=== PATIENT | male | born 1960 | race Hispanic/Latino ===

== ENCOUNTER 2020-01-07 07:57 | Inpatient (IN) | payer OTHER ==
[~2020-01-07] VITALS: Ht 177.8 cm; Wt 134.7 kg
[2020-01-07 08:28] LABS: BASOPHILS % 0.2 % (0.0-1.0); EOSINOPHILS # (AUTO) 0.1 (0.0-0.4); EOSINOPHILS % 0.5 % (0.0-6.0); HEMATOCRIT 40.6 % (38.2-49.6); HEMOGLOBIN 14.4 g/dL (14.0-18.0); LYMPHOCYTES # (AUTO) 0.6 (1.0-3.2); LYMPHOCYTES % 4.6 % (18.0-39.1); MEAN CORPUSCULAR HGB CONC 35.5 g/dL (31-35); MEAN CORPUSCULAR VOLUME 87.5 fL (81-99); MONOCYTES # (AUTO) 0.5 (0.2-0.8); MONOCYTES % 4.1 % (4.4-11.3); NEUTROPHILS # (AUTO) 11.7 (2.1-6.9); NEUTROPHILS % 89.6 % (38.7-80.0); PLATELET COUNT 188 x10e3/uL (140-360); RED BLOOD COUNT 4.64 x10e6/uL (4.3-5.7); RED CELL DISTRIBUTION WIDTH 13.3 % (11.7-14.4)
[2020-01-07 08:39] LABS: INR 1.07; PARTIAL THROMBOPLASTIN TIME 32.9 seconds (23.8-35.5); PROTHROMBIN TIME 14.6 seconds (11.9-14.5)
[2020-01-07 08:46] LABS: ALANINE AMINOTRANSFERASE 17 IU/L (0-55); ALBUMIN 3.7 g/dL (3.5-5.0); ALBUMIN/GLOBULIN RATIO 0.9 (0.8-2.0); ALKALINE PHOSPHATASE 69 IU/L (40-150); ANION GAP 16.2 mmol/L (8-16); BLOOD UREA NITROGEN 18 mg/dL (7-26); BUN/CREATININE RATIO 18 (6-25); CALCIUM 10.2 mg/dL (8.4-10.2); CARBON DIOXIDE 31 mmol/L (22-29); CHLORIDE 94 mmol/L (98-107); CREATININE, SERUM 0.98 mg/dL (0.72-1.25); EST GLOMERULAR FILTRATION RATE > 60 ML/MIN (60-); GLUCOSE 274 mg/dL (74-118); POTASSIUM 3.2 mmol/L (3.5-5.1); SODIUM 138 mmol/L (136-145)
--- NOTE | 2020-01-07 09:37 | Diagnostic Imaging Report ---
EXAMINATION: CHEST SINGLE (PORTABLE) INDICATION: Shortness of breath. COMPARISON: None FINDINGS: TUBES and LINES: None. LUNGS: Low lung volumes. Central vascular congestion without pulmonary edema. Mild patchy left basilar opacity. PLEURA: No pleural effusion or pneumothorax. HEART AND MEDIASTINUM: The cardiomediastinal silhouette is unremarkable. BONES AND SOFT TISSUES: No acute osseous lesion. Soft tissues are unremarkable. UPPER ABDOMEN: No free air under the diaphragm. IMPRESSION: Low lung volumes with mild patchy left basilar opacity, likely atelectasis, although infection is possible in the appropriate clinical setting. Signed by: Dr. Mar Bell MD on 01/07/2020 9:33 AM
[2020-01-07] MEDS ORDERED: ACETAMINOPHEN 325 MG TAB PO ONE (09:45)
[2020-01-07] MEDS ORDERED: AZITHROMYCIN 500MG/NS 250 ML 250 ML IV STA (11:20)
--- OUTSIDE RECORDS SUMMARY | 2020-01-07 12:10 | XMS REPORT ---
Author Author [facility] Address Unknown Phone Unavailable Care Team Providers Care Bell Valet Name Role Phone SAVANNAH HOOPER Unavailable Unavailable Problems This patient has no known problems. Allergies, Adverse Reactions, Alerts This patient has no known allergies or adverse reactions. Medications This patient has no known medications. Encounters Start Date/Time End Date/Time Encounter Type Admission Type Attending [facility] Care Department Encounter ID 2020-03-25 00:00:00 2020-03-25 00:00:00 Outpatient [facility] [id number] 2019-11-27 00:00:00 2019-11-27 00:00:00 Outpatient [facility] [id number] 2019-09-09 14:07:07 2019-09-09 14:07:07 Outpatient [facility] [id number] 2019-08-14 09:56:07 2019-08-14 09:56:07 Outpatient [facility] [id number] 2019-08-02 09:48:35 2019-08-02 09:48:35 Outpatient [facility] [id number] 2019-07-28 08:16:00 2019-07-28 08:16:00 Outpatient [facility] [id number] 2019-06-27 14:02:18 2019-06-27 14:02:18 Outpatient [facility] [id number] 2019-06-26 12:18:23 2019-06-26 12:18:23 Outpatient [facility] [id number] 2019-06-26 11:38:22 2019-06-26 11:38:22 Outpatient [facility] [id number] 2019-06-26 10:42:53 2019-06-26 10:42:53 Outpatient [facility] [id number] 2019-06-26 00:00:00 2019-06-26 00:00:00 Outpatient [facility] [id number] 2019-05-04 15:32:57 2019-05-04 15:32:57 Outpatient [facility] [id number] 2019-05-04 14:11:02 2019-05-04 14:11:02 Outpatient [facility] [id number] 2019-05-02 13:14:00 2019-05-02 13:14:00 Outpatient [facility] [id number] 2019-03-07 14:34:33 2019-03-07 14:34:33 Outpatient [facility] [id number] 2019-02-22 00:00:00 2019-02-22 00:00:00 Outpatient [facility] [id number] 2019-02-07 14:41:22 2019-02-07 14:41:22 Outpatient [facility] [id number] 2018-12-27 14:47:44 2018-12-27 14:47:44 Outpatient [facility] [id number] 2018-12-14 09:38:01 2018-12-14 09:38:01 Outpatient [facility] [id number] 2018-11-30 10:21:18 2018-11-30 10:21:18 Outpatient [facility] [id number] 2018-11-30 09:39:26 2018-11-30 09:39:26 Outpatient [facility] [id number] 2018-11-29 14:47:13 2018-11-29 14:47:13 Outpatient [facility] [id number] 2018-11-15 09:50:59 2018-11-15 09:50:59 Outpatient [facility] [id number] 2018-11-15 09:50:03 2018-11-15 09:50:03 Outpatient [facility] [id number] 2018-11-01 13:54:47 2018-11-01 13:54:47 Outpatient [facility] [id number] 2018-10-28 09:46:55 2018-10-28 09:46:55 Outpatient [facility] [id number] 2018-10-04 15:08:38 2018-10-04 15:08:38 Outpatient [facility] [id number] 2018-10-03 10:31:38 2018-10-03 10:31:38 Outpatient [facility] [id number] 2018-09-14 08:59:32 2018-09-14 08:59:32 Outpatient [facility] [id number] 2018-09-13 15:35:11 2018-09-13 15:35:11 Outpatient [facility] [id number] 2018-08-04 00:00:00 2018-08-04 00:00:00 Outpatient [facility] [id number] 2018-07-08 11:08:22 2018-07-08 11:08:22 Outpatient [facility] [id number] 2018-07-08 10:47:40 2018-07-08 10:47:40 Outpatient [facility] [id number] 2018-06-28 00:00:00 2018-06-28 00:00:00 Outpatient [facility] [id number] 2018-06-17 00:00:00 2018-06-17 00:00:00 Outpatient [facility] [id number] 2018-06-01 10:34:20 2018-06-01 10:34:20 Outpatient [facility] [id number] 2018-05-31 00:00:00 2018-05-31 00:00:00 Outpatient [facility] [id number] 2018-05-16 00:00:00 2018-05-16 00:00:00 Outpatient [facility] [id number] 2018-05-16 00:00:00 2018-05-16 00:00:00 Outpatient [facility] [id number] 2018-04-22 10:59:50 2018-04-22 10:59:50 Outpatient [facility] [id number] 2018-04-05 00:00:00 2018-04-05 00:00:00 Outpatient [facility] [id number] 2018-03-04 11:22:43 2018-03-04 11:22:43 Outpatient [facility] [id number] 2018-03-01 00:00:00 2018-03-01 00:00:00 Outpatient [facility] [id number] 2018-02-17 08:21:28 2018-02-17 08:21:28 Outpatient [facility] [id number] 2018-02-17 08:07:03 2018-02-17 08:07:03 Outpatient [facility] [id number] 2018-02-10 12:38:08 2018-02-10 12:38:08 Outpatient [facility] [id number] 2018-02-10 11:16:57 2018-02-10 11:16:57 Outpatient [facility] [id number] 2018-02-10 00:00:00 2018-02-10 00:00:00 Outpatient [facility] [id number] Results Test Description Test Time Test Comments Text Results Atomic Results Result Comments CHEST SINGLE (PORTABLE) 2020-01-07 09:31:00 [facility] [address] [facility] [place] [address] Patient Name: NALINI MORGAN MR #: [id number] : 1960 Age/Sex: 59/M Req #: [id number] Adm Physician: Ordered by: SAVANNAH HOOPER DO Report #: [id number] Location: ER Room/Bed: Procedure: [id number] DX/CHEST SINGLE (PORTABLE) Exam Date: 01/07/20 Exam Time: 0845 REPORT STATUS: Signed EXAMINATION: CHEST SINGLE (PORTABLE) INDIC ATION: Shortness of breath. COMPARISON: None FINDINGS: TUBES and LINES: None. LUNGS: Low lung volumes. Central vascular congestion without pulmonary edema. Mild patchy left basilar opacity. PLEURA: No pleural effusion or pneumothorax. HEART AND MEDIASTINUM: The cardiomediastinal silhouette is unremarkable. BONES AND SOFT TISSUES: No acute osseous lesion. Soft tissues are unremarkable. UPPER ABDOMEN: No free air under the diaphragm. IMPRESSION: Low lung volumes with mild patchy left basilar opacity, likely atelectasis, although infection is possible in the appropriate clinical setting. Signed by: Dr. Cheyanne Heller MD on 01/07/2020 9:33 AM Dictated By: CHEYANNE HELLER MD 2 Transcribed By: PATRICE on 01/07/20932 COPY TO: SAVANNAH HOOPER DO
[2020-01-07] MEDS ORDERED: ONDANSETRON HCL INJ 2MG/ML 2ML 2 MG/ML VIAL IV STA (12:26)
[2020-01-07] MEDS ORDERED: ZOLPIDEM TARTRATE 5 MG TAB PO PRN (12:45)
[2020-01-07] MEDS ORDERED: CEFTRIAXONE SOD 1 GM/NS 50 ML 50 ML IV SCH (12:45)
[2020-01-07] MEDS ORDERED: SODIUM CHLORIDE 0.9% 1000ML 1,000 ML IV ONE (12:45)
[2020-01-07] MEDS ORDERED: DEXTROSE 50% SYRINGE 50 ML IV PRN (12:45)
[2020-01-07] MEDS ORDERED: SODIUM CHLORIDE 0.9% 50ML 50 ML ONE ×2 (12:57→18:01)
[2020-01-07] MEDS ORDERED: IOPAMIDOL 370 MG/ML 200 ML INFUS..BTL INJ ONE ×2 (12:57→18:01)
[2020-01-07] MEDS ORDERED: DIATRIZOATE MEGL/DIATRIZOA SOD 30 ML BTL PO ONE (13:20)
[2020-01-07] MEDS ORDERED: METRONIDAZOLE 500MG/NS 100ML 100 ML IV SCH (14:00)
[2020-01-07] MEDS: PANTOPRAZOLE 40 MG 10ML VIAL IV SCH (14:08)
[2020-01-07] MEDS ORDERED: LACTATED RINGER'S 1,000 ML IV ONE (14:30)
[2020-01-07] MEDS ORDERED: POTASSIUM CHLORIDE 20MEQ/100ML 200 ML IV ONE (14:30)
[2020-01-07] MEDS ORDERED: PROMETHAZINE 12.5MG/ NACL 0.9% 12.5 MG/50 ML BAG IV PRN (14:45)
--- NOTE | 2020-01-07 15:52 | Consultation ---
DATE OF CONSULTATION: Pulmonary Critical Care consultation CHIEF COMPLAINT: Vomiting, acid reflux, and abdominal discomfort. HISTORY OF PRESENT ILLNESS: The patient is a 59-year-old man. He reports a history of diabetes and takes Glucophage. He also has a history of hypertension and takes hydrochlorothiazide. Over the past 4-5 days, he has felt ill. He has had distention of his abdomen. He has not been moving his bowels or passing gas well. He also reports some vomiting. He has a foul taste in his mouth. The patient seems unsure about fevers at home. He denies any cough. He is not short of breath. PAST SURGICAL HISTORY: No prior surgical history. PAST MEDICAL HISTORY: 1. Diabetes. 2. Hypertension. 3. The patient denies any history of ulcers, stomach problems, gastroesophageal reflux, or liver problems. 4. Umbilical hernia. 5. No prior history of asthma or COPD. SOCIAL HISTORY: The patient has never been a smoker. He is not a drinker. He only occasionally uses alcohol. He works in maintenance at a local school. He lives in [place]. ALLERGIES: NO KNOWN DRUG ALLERGIES. FAMILY HISTORY: Family history is noncontributory. REVIEW OF SYSTEMS: The patient is afebrile. He does not complain of any headache. He has no neck pain. He has no chest discomfort. He has no cough. He has no abdominal pain, although he does have some distention. He has had gastroesophageal reflux and bad taste in his mouth. He reports difficulty moving his bowels and difficulty moving gas. He also complains of some weakness and apathy. He does not feel like walking. PHYSICAL EXAMINATION: VITAL SIGNS: The patient is afebrile. The blood pressure is 148/90, and saturation is 95%. Pulse is 105. Temperature is 99.2. HEENT: No facial swelling or erythema. CARDIAC: Regular rate and rhythm with normal S1, S2. LUNGS: Auscultation of lungs shows decreased breath sounds at the bases. There is no wheezing. ABDOMEN: Mildly distended, but soft. There is no rebound or guarding. There is an umbilical hernia. EXTREMITIES: No leg edema or calf tenderness. There is no cyanosis clubbing. SKIN: No rashes. NEUROLOGICAL: No focal abnormalities. He moves his legs well. LABORATORY DATA: BUN to creatinine ratio is normal. The other electrolytes are within normal limits. The potassium is 3.2. White blood cell count is 13 and hemoglobin is 14.4. The platelet count is 188. RADIOGRAPHIC DATA: Chest x-ray shows low lung volumes with patchy atelectasis. IMPRESSION: 1. Abdominal distention and vomiting. 2. Gastroesophageal reflux. 3. Diabetes. 4. Hypertension. 5. Umbilical hernia. PLAN: 1. Judicious use of IV fluids. 2. Protonix and Zofran. 3. Either ultrasound or CT scan of abdomen. 4. Consider GI evaluation. 5. Await coronavirus testing. Blayne Osorio MD [facility] /[id number]
[2020-01-07 16:05] VITALS: BP 116/87
--- NOTE | 2020-01-07 16:26 | Diagnostic Imaging Report ---
Exam: KUB -3 views Clinical History: Vomiting. Comparison: None. Findings: Examination somewhat limited by body habitus and technique. Dilated small bowel loops, measuring up to 5.8 cm with a paucity of air within the colon. No evidence of free intraperitoneal air. Likely air-filled colon loop below the left hemidiaphragm. No evidence of abnormal calcification. No acute bony abnormality. Impression: Findings of high-grade small bowel obstruction. Signed by: Dr. Mar Bell MD on 01/07/2020 4:23 PM
[2020-01-07] MEDS ORDERED: INSULIN REGULAR, HUMAN 100 UNIT/1 ML 3ML VIAL SQ SCH (16:30)
--- NOTE | 2020-01-07 16:43 | Diagnostic Imaging Report ---
EXAM: CT Abdomen and Pelvis WITH contrast INDICATION: Vomiting. COMPARISON: KUB 01/07/2020. TECHNIQUE: Abdomen and pelvis were scanned utilizing a multidetector helical scanner from the lung base to the pubic symphysis after administration of IV contrast. Coronal and sagittal reformations were obtained. Routine protocol was performed. Scan was performed when during portal venous phase. IV CONTRAST: 100 cc of Isovue-370. ORAL CONTRAST: None. COMPLICATIONS: None RADIATION DOSE: Total DLP: 804.7 mGy*cm Estimated effective dose: (DLP x 0.015 x size factor) mSv CTDIvol has been reviewed. It is below the limits set by the Radiation Protocol Committee (RPC). FINDINGS: LINES and TUBES: None. LOWER THORAX: Dependent subsegmental atelectasis. Multivessel extensive coronary atherosclerosis. HEPATOBILIARY: No evidence of focal lesion. No biliary ductal dilation. GALLBLADDER: No radio-opaque stones or sludge. No wall thickening. SPLEEN: No splenomegaly. PANCREAS: No focal masses or ductal dilatation. Pancreatic fatty atrophy. ADRENALS: No adrenal nodules KIDNEYS/URETERS: Nonspecific mild bilateral perinephric stranding. No evidence of hydronephrosis, solid mass, or stone. GI TRACT: In the right lower quadrant there is a tubular structure likely appendix which appears dilated, measuring up to 1.1 cm with surrounding inflammatory changes (axial series 2, image 72; sagittal image 51). Distended stomach with air-fluid level. Distended small bowel loops, measuring up to 5.5 cm. Transition point in the ileum in the right mid abdomen as seen on series 2, image 49. Decompressed distal ileal loops. Air and some stool seen within partially decompressed colonic loops. Tiny hiatal hernia. PELVIC ORGANS/BLADDER: Bladder is partially decompressed and appears mildly circumferentially thick-walled. LYMPH NODES: No lymphadenopathy. VESSELS: There is mild atherosclerotic disease in the aorta and major arterial branches. PERITONEUM / RETROPERITONEUM: No free air or fluid. BONES AND SOFT TISSUES: No acute osseous abnormality. Fat-containing bilateral inguinal hernias. Fat-containing periumbilical hernia with a neck measuring up to 3.0 cm. No evidence of incarceration. CONCLUSION: Findings of acute appendicitis. No evidence of gross perforation or drainable fluid collection. Findings of high-grade partial small bowel obstruction with transition point in the right mid abdomen in the ileum. Alternatively this may be secondary to ileus in the setting of appendicitis. No evidence of pneumatosis or free air. Mild wall thickening within the bladder may reflect decompression versus cystitis. Mild nonspecific bilateral perinephric stranding which may reflect infectious or inflammatory etiology. Recommend clinical correlation with urinalysis. Multivessel extensive coronary atherosclerosis. The above findings were discussed with Dr. Beebe on 01/07/2020 at 4:39 PM, who responded indicating that the communication was understood. Signed by: Dr. Mar Bell MD on 01/07/2020 4:40 PM
[2020-01-07] MEDS: INSULIN LISPRO 100 UNIT/1 ML 3ML VIAL SQ SCH ×2 (16:45→21:00)
[2020-01-07] MEDS ORDERED: CEFTRIAXONE SOD 1 GM/NS 50 ML 50 ML IV ONE (17:00)
[2020-01-07] MEDS ORDERED: ENOXAPARIN SOD INJ 40 MG/0.4 ML SYR SC SCH (17:00)
[2020-01-07] MEDS: PIPER-TAZ 3.375 GM 50 ML IV SCH (18:09)
[2020-01-07 18:27] LABS: CLARITY,URINE SL CLOUDY (CLEAR); COLOR,URINE YELLOW (YELLOW); LEUKOCYTE ESTERASE ,URINE NEGATIVE (NEGATIVE); NITRITE,URINE NEGATIVE (NEGATIVE); PROTEIN,URINE DIPSTICK 1+ (NEGATIVE)
[2020-01-07 18:28] LABS: BILIRUBIN,URINE NEGATIVE (NEGATIVE); KETONES,URINE NEGATIVE (NEGATIVE); URINE UROBILINOGEN 0.2 mg/dL (0.2 - 1)
[2020-01-07] MEDS: LACTATED RINGER'S 1,000 ML IV SCH (18:30)
[2020-01-07] MEDS ORDERED: MORPHINE SULFATE INJ 4 MG/ML INJ 1ML IV PRN (18:30)
[2020-01-07 18:32] LABS: BACTERIA,URINE RARE /HPF; EPITHELIAL CELLS,URINE FEW /LPF; RBC,URINE 0-5 /HPF (0-5); WBC,URINE (MAN) 0-5 /HPF (0-5)
[2020-01-07 20:00] VITALS: BP 142/90
--- NOTE | 2020-01-07 20:02 | History and Physical ---
CHIEF COMPLAINT: Vomiting. HISTORY OF PRESENT ILLNESS: This is a 59-year-old diabetic, morbidly obese, who came in with abdominal pain for the last two days with some subjective fever. The patient also vomited at home and it sounded like the patient was having trouble with constipation and took some laxative [id number] and finally had a bowel movement. The patient stated his pain is on the right side and also while he is walking. Denies chest pain, little bit of dyspnea on exertion, no myalgia and not really any cough. PAST MEDICAL AND SURGICAL HISTORY: Diabetes. MEDICATIONS: Please see medication reconciliation form. ALLERGIES: NONE. SOCIAL HISTORY: Social drinking. FAMILY HISTORY: No diabetes. REVIEW OF SYSTEMS: A 10-point review of system obtained, nothing else is significant other than what is stated in HPI. PHYSICAL EXAMINATION: VITAL SIGNS: Temperature 99.2, initial pulse was 115 now is down to 96, respiratory rate 17 to 25, blood pressure anywhere from 140/86 to 192/115. GENERAL: No acute distress. SKIN: No rash. HEENT: Anicteric. Oropharynx is clear. LUNGS: Clear. HEART: Regular rate and rhythm. Normal S1, S2. ABDOMEN: Soft. Mild left-sided tenderness to deep palpation. No rebound tenderness. MUSCULOSKELETAL: Painless range of motion. NEUROLOGIC: Alert and oriented x3. Cranial nerves 2 through 12 intact. PSYCHIATRIC: No hallucinations. LABORATORY DATA: Laboratory abernathy; white count 13, hemoglobin 14, platelet count 188,000. INR 1.07, PTT 32.9, potassium 3.2, creatinine 0.98, sugar 294. LFTs are normal. Chest x-ray shows possible atelectasis on the left side. ASSESSMENT AND PLAN: 1. Abdominal pain and vomiting with sepsis present on admission likely due to this reason. We will get a stat KUB to evaluate. We will also check a lipase. The patient is also scheduled for a CT scan. Empirically, he will be cover with IV Rocephin and IV Flagyl along with IV fluid. 2. Hypokalemia, we will replete. We will also check magnesium. 3. Morbid obesity. 4. Diabetes. We will put him on sliding scale for now. 5. GI and DVT prophylaxis. Protonix IV and Lovenox. Yiching MD LUCILLE Singh/[place] [facility] /[id number]
[2020-01-08] VITALS (8 sets, daily range): BP systolic 121–161; BP diastolic 67–83
[2020-01-08] MEDS: PIPER-TAZ 3.375 GM 50 ML IV SCH ×4 (00:30→17:51)
[2020-01-08] MEDS: LACTATED RINGER'S 1,000 ML IV SCH ×3 (03:23→18:30)
[2020-01-08] MEDS ORDERED: METFORMIN HCL500 MG PO (05:34)
[2020-01-08] MEDS ORDERED: HYDROCHLOROTHIA25 MG (05:34)
[2020-01-08 06:25] LABS: BASOPHILS % 0.4 % (0.0-1.0); EOSINOPHILS # (AUTO) 0.1 (0.0-0.4); EOSINOPHILS % 0.8 % (0.0-6.0); HEMATOCRIT 45.4 % (38.2-49.6); HEMOGLOBIN 14.5 g/dL (14.0-18.0); LYMPHOCYTES # (AUTO) 1.2 (1.0-3.2); LYMPHOCYTES % 12.5 % (18.0-39.1); MEAN CORPUSCULAR HEMOGLOBIN 30.8 pg (28-32); MEAN CORPUSCULAR HGB CONC 31.9 g/dL (31-35); MEAN CORPUSCULAR VOLUME 96.4 fL (81-99); MONOCYTES # (AUTO) 0.6 (0.2-0.8); MONOCYTES % 6.4 % (4.4-11.3); NEUTROPHILS # (AUTO) 7.5 (2.1-6.9); NEUTROPHILS % 79.2 % (38.7-80.0); PLATELET COUNT 133 x10e3/uL (140-360); RED BLOOD COUNT 4.71 x10e6/uL (4.3-5.7); RED CELL DISTRIBUTION WIDTH 13.4 % (11.7-14.4)
[2020-01-08 06:37] LABS: ALANINE AMINOTRANSFERASE 13 IU/L (0-55); ALBUMIN 3.4 g/dL (3.5-5.0); ALBUMIN/GLOBULIN RATIO 0.9 (0.8-2.0); ALKALINE PHOSPHATASE 64 IU/L (40-150); ANION GAP 14.7 mmol/L (8-16); BLOOD UREA NITROGEN 24 mg/dL (7-26); BUN/CREATININE RATIO 27 (6-25); CALCIUM 9.5 mg/dL (8.4-10.2); CARBON DIOXIDE 28 mmol/L (22-29); CHLORIDE 100 mmol/L (98-107); CREATININE, SERUM 0.88 mg/dL (0.72-1.25); EST GLOMERULAR FILTRATION RATE > 60 ML/MIN (60-); GLUCOSE 148 mg/dL (74-118); POTASSIUM 3.7 mmol/L (3.5-5.1); SODIUM 139 mmol/L (136-145)
[2020-01-08] MEDS: INSULIN LISPRO 100 UNIT/1 ML 3ML VIAL SQ SCH ×4 (07:30→22:57)
[2020-01-08] MEDS: PANTOPRAZOLE 40 MG 10ML VIAL IV SCH (10:22)
[2020-01-08] MEDS ORDERED: CEFTRIAXONE SOD 1 GM/NS 50 ML 50 ML IV SCH (12:45)
[2020-01-08] MEDS ORDERED: BUPIVACAINE 0.5%/EPI 30 ML SDV INJ ONE (14:09)
[2020-01-08] MEDS ORDERED: BUPIVACAINE 0.25% 30ML SDV INJ ONE (14:09)
[2020-01-08] MEDS ORDERED: MIDAZOLAM HCL 2 MG/2 ML VIAL ONE (14:14)
[2020-01-08] MEDS ORDERED: FENTANYL CITRATE/PF 100MCG/2 ML INJ ONE (14:14)
[2020-01-08] MEDS ORDERED: LIDOCAINE HCL 2% LOCAL INJ 5 ML SDV VIAL INJ ONE (14:23)
[2020-01-08] MEDS ORDERED: ONDANSETRON HCL INJ 2MG/ML 2ML 2 MG/ML VIAL ONE (14:23)
[2020-01-08] MEDS ORDERED: SEVOFLURANE INHAL SOLN 250 ML PEN BTL ONE (14:23)
[2020-01-08] MEDS ORDERED: ACETAMINOPHEN 1000 MG/100 ML IV ONE (14:23)
[2020-01-08] MEDS ORDERED: ROCURONIUM BROMIDE 10 MG/ML 5ML VIAL IV ONE (14:23)
[2020-01-08] MEDS ORDERED: NEOSTIGMINE 1 MG/ML 10ML VIAL ONE (14:23)
[2020-01-08] MEDS ORDERED: PROPOFOL IV EMULSION 10 MG/ML 20 ML VIAL ONE (14:23)
[2020-01-08] MEDS ORDERED: GLYCOPYRROLATE INJ 0.2 MG/ML VIAL ONE (14:23)
[2020-01-08] MEDS ORDERED: HYDROMORPHONE 1MG/1ML INJ IV PRN (15:30)
[2020-01-08] MEDS ORDERED: SUGAMMADEX SODIUM 200 MG/2 ML VIAL IV ONE (15:35)
[2020-01-08] MEDS ORDERED: ACETAMINOPHEN 1000 MG/100 ML IV PRN (16:00)
--- NOTE | 2020-01-08 16:56 | Operative Report ---
DATE OF PROCEDURE: 01/08/2020 SURGEON: Zackery Fitch MD PREOPERATIVE DIAGNOSIS: Acute appendicitis. POSTOPERATIVE DIAGNOSIS: Acute appendicitis. OPERATION PERFORMED: Laparoscopic appendectomy. MEDICAL ADMINISTRATIVE: LAURA Benitez. ANESTHESIA: General. COMPLICATIONS: None. ESTIMATED BLOOD LOSS: Minimal. DESCRIPTION OF PROCEDURE: With the patient lying bed in the supine position under good general endotracheal anesthesia, the abdomen was prepped with Betadine solution and draped in the usual manner. A Veress needle was introduced into the right upper quadrant and pneumoperitoneum was established without any difficulty. A 5 mm trocar was placed in the right subcostal region and a 5 mm videolaparoscope was placed into the intraabdominal cavity. Videolaparoscopy at this point revealed a large known umbilical hernia to be impacted with omentum. There was no bowel contained within the hernia sac. Two more 5 mm trocars were then placed in the left abdomen and the 12 mm trocar was placed in the right mid abdomen. Laparoscopy at this point revealed an inflammatory mass in the right gutter with the terminal ileum being stuck to it and covering it up. There was no fluid in the rest of the abdominal cavity. The terminal ileum was then mobilized off the lateral gutter and acutely-inflamed appendix was encountered. The base of the appendix was then dissected as it joined the cecum and was then divided with an application of the Endo-DAISY stapler. The mesentery of the appendix was then divided with another application of the Endo-DAISY vascular stapler. The appendix was then placed in a pouch and removed through the 12 mm trocar. Videolaparoscopy was then again carried out. Hemostasis was ascertained. The abdomen was then irrigated and all the excess fluid was aspirated. Perfect hemostasis was ascertained. The pneumoperitoneum was evacuated and all the trocars were removed under direct vision. The midline fascia at the umbilicus was then closed with a dmnlze-pg-ikswj of 0 Vicryl. All layers were infiltrated on the way out with solution of 0.25% Marcaine. The subcutaneous tissue was approximated with 3-0 Vicryl and the skin was closed with subcuticular 5-0 Vicryl. Benzoin, Steri-Strips, and Band-Aids were applied. The sponge, lap, and needle count was correct. The patient tolerated the procedure well and returned to the recovery room in stable condition. MD PUJA Hauser/[place] [facility] /[id number]
--- NOTE | 2020-01-08 19:12 | Consultation ---
DATE OF CONSULTATION: HISTORY: Mr. Saeed is a 59-year-old gentleman, who has history of diabetes and hypertension, on Glucophage and hydrochlorothiazide, comes in with abdominal pain, not feeling well. The patient was seen on January 06. For summary details, see my consultation. PAST MEDICAL HISTORY: Significant for obesity. PAST SURGICAL HISTORY: As above. ALLERGIES: NKA. SOCIAL HISTORY: He does not smoke, drug abuse, alcohol abuse. FAMILY HISTORY: Unremarkable. IMPRESSION: Abdominal distention, diabetes mellitus, hypertension, concerned about acute abdomen. Recommend stat CAT scan of the pelvis. Surgical evaluation. Put the patient on Zosyn, diabetic control, IV fluids. Discussed with the ER physician. We will follow. MD GENE Gonzalez/[place] [facility] /[id number]
--- NOTE | 2020-01-08 19:17 | Progress Note ---
DATE: SUBJECTIVE: Mr. Seaed was seen today. He is status post surgery. The patient underwent laparoscopic appendectomy. Events noted. The patient was diagnosed with appendicitis, underwent surgery. He is currently post surgery. LABORATORY DATA: Reviewed. White count 9.5, hemoglobin 14.5. His sodium 138, potassium 3.7, creatinine 0.88. PHYSICAL EXAMINATION: GENERAL: Currently, alert and oriented. Does not seem to be in acute distress. VITAL SIGNS: Stable, currently afebrile. HEENT: He is not icteric. NECK: Supple. CHEST: Clear. COR: S1, S2. ABDOMEN: Soft. IMPRESSION: Appendicitis status post appendectomy. Continue Zosyn. Recheck CBC. Recheck Chem panel. Continue supportive care. We will follow. MD GENE Gonzalez/[place] [facility] /[id number]
[2020-01-09] VITALS (10 sets, daily range): BP systolic 132–152; BP diastolic 64–83
[2020-01-09] MEDS: PIPER-TAZ 3.375 GM 50 ML IV SCH ×5 (00:47→20:59)
[2020-01-09] MEDS: LACTATED RINGER'S 1,000 ML IV SCH ×2 (02:30→05:12)
[2020-01-09 05:54] LABS: BASOPHILS % 0.2 % (0.0-1.0); EOSINOPHILS % 0.5 % (0.0-6.0); HEMATOCRIT 37.2 % (38.2-49.6); HEMOGLOBIN 11.4 g/dL (14.0-18.0); LYMPHOCYTES # (AUTO) 0.9 (1.0-3.2); MEAN CORPUSCULAR HEMOGLOBIN 31.2 pg (28-32); MEAN CORPUSCULAR HGB CONC 30.6 g/dL (31-35); MEAN CORPUSCULAR VOLUME 101.9 fL (81-99); MONOCYTES # (AUTO) 0.8 (0.2-0.8); MONOCYTES % 12.4 % (4.4-11.3); NEUTROPHILS # (AUTO) 4.8 (2.1-6.9); NEUTROPHILS % 72.4 % (38.7-80.0); PLATELET COUNT 157 x10e3/uL (140-360); RED BLOOD COUNT 3.65 x10e6/uL (4.3-5.7); RED CELL DISTRIBUTION WIDTH 13.4 % (11.7-14.4)
[2020-01-09 06:07] LABS: ANION GAP 10.6 mmol/L (8-16); BLOOD UREA NITROGEN 16 mg/dL (7-26); BUN/CREATININE RATIO 21 (6-25); CALCIUM 8.6 mg/dL (8.4-10.2); CARBON DIOXIDE 32 mmol/L (22-29); CHLORIDE 101 mmol/L (98-107); CREATININE, SERUM 0.77 mg/dL (0.72-1.25); EST GLOMERULAR FILTRATION RATE > 60 ML/MIN (60-); GLUCOSE 181 mg/dL (74-118); POTASSIUM 3.6 mmol/L (3.5-5.1); SODIUM 140 mmol/L (136-145)
--- NOTE | 2020-01-09 06:49 | Consultation ---
DATE OF CONSULTATION: 01/07/2020 REASON FOR CONSULTATION: Abdominal pain, sepsis. HISTORY OF PRESENT ILLNESS: This patient who is a 59-year-old male, who has history of abdominal pain, history of obesity, comes in with 3 days history of abdominal pain, nausea, vomiting. He is vomiting a bile type of material. The patient is seen in the emergency room. PAST MEDICAL HISTORY: Obesity, hypertension. PAST SURGICAL HISTORY: Denies. ALLERGIES: NKA. SOCIAL HISTORY: No smoking, drug abuse or alcohol abuse. LABORATORY DATA: White count 13, hemoglobin 14. Sodium 138, potassium 3.2 with creatinine 0.98. REVIEW OF SYSTEMS: Otherwise as above. PHYSICAL EXAMINATION: GENERAL: Currently alert, oriented, does not seem acute distress, afebrile. HEENT: Normocephalic, not icteric. NECK: Supple. CHEST: Clear bilateral. HEART: S1, S2. No S3, S4, or murmur. ABDOMEN: Soft. Bowel sounds present. No tenderness. EXTREMITIES: No edema. IMPRESSION: Nausea, vomiting, abdominal pain, concerned about intraabdominal infection. The patient is currently on Rocephin and Flagyl. Obtain stat CT of abdomen and pelvis. May need surgical evaluation. NG tube to low intermittent suction. Since he came in season of COVID-19, we will put him on droplet isolation for the time being. Till we get PCI which was ordered, but suspicion is very low. MD GENE Gonzalez/[place] [facility] /[id number]
--- NOTE | 2020-01-09 06:58 | Progress Note ---
DATE: 01/08/2020 SUBJECTIVE: This is a pleasant, morbidly obese, gentleman, who is 59 years old. The patient came to the hospital complaining of vomiting and abdominal pain with subjective fever, however, no fever documented since admission. He has very small amount of bowel movements. He has no cough and no sweats. MEDICATIONS: Medication list reviewed. As far as Infectious Disease point of view, the patient is on Zosyn. ALLERGIES: NO KNOWN ALLERGIES. REVIEW OF SYSTEMS: Complain of a right lower quadrant abdominal pain. No vomiting. No chills. No cough. No sweats. No fever. Very small amount of bowel movement and he feels distended and bloated. PHYSICAL EXAMINATION: VITAL SIGNS: Temperature is 99.9 at the max since admission, pulse is 84, respirations 18, and blood pressure 143/78. GENERAL: Alert and oriented, responds appropriately. CV: S1 and S2. CHEST: Equal expansion. Decreased breath sounds. No acute distress. ABDOMEN: Very tender on the right lower quadrant. HEENT: Moist. No pallor. No JVD. EXTREMITIES: No significant edema. Moves all. LABORATORY DATA: White blood cells 9.51, improved from 13.04; hemoglobin 14.5; and platelet 133, dropped from 188. Creatinine is 0.88, sodium 139, potassium 3.7. COVID testing is pending and influenza A and B antigen are negative. MICROBIOLOGY: Blood culture is negative. Recheck blood culture in progress and they are all dated same. 01/07/2020. RADIOLOGY STUDIES: Chest x-ray showed low lung volumes and mild patchy left basilar opacity, likely atelectasis, although infection is possible in appropriate clinical settings. CT of abdomen and pelvis showed acute appendicitis. No evidence of gross perforation or drainable fluid collection, also suggested findings of high-grade partial small bowel obstruction with transition point in the right mid abdomen in the ileum. Alternatively, this may be secondary to ileus in the setting of appendicitis. No evidence of pneumatosis or free air. Bladder may be decompressed versus cystitis. Nonspecific bilateral perinephric stranding, which may reflect infectious or inflammatory etiology. Followup KUB showed high-grade small bowel obstruction. ASSESSMENT AND PLAN: Concern of acute appendicitis. Also on radiology studies in addition to physical exam, tender in the right lower quadrant, also possible small bowel obstruction on CAT scan and KUB, this patient needs a surgery as soon as possible. The chances of COVID-19 is slim to none based on the patient's presentation and available radiology and labs and vital signs. The patient is currently not showing signs and symptoms of cough, shortness of breath, sweats, or any other discomfort except his right lower quadrant abdominal tenderness. I spoke with surgery team, Dr. Zackery Fitch. Also discussed with Dr. Bolton, agree with surgery. We will continue antibiotics at this point. Further management of this patient is based on daily findings on laboratory and physical examination, also based on findings intraoperatively. Dictated by Dilip Nuñez) JANN Briseno Dina Bolton MD /[facility] /[id number]
[2020-01-09] MEDS: HYDROCHLOROTHIAZIDE 25 MG TAB PO SCH (08:08)
[2020-01-09] MEDS: PANTOPRAZOLE 40 MG 10ML VIAL IV SCH (08:09)
[2020-01-09] MEDS: HYDROCODONE/APAP 7.5MG-325MG 1 EA TAB PO PRN ×2 (09:25→14:56)
[2020-01-09] MEDS: INSULIN LISPRO 100 UNIT/1 ML 3ML VIAL SQ SCH ×4 (09:29→21:00)
--- NOTE | 2020-01-09 09:34 | Progress Note ---
DATE: SUBJECTIVE: This case was discussed with Dr. Bolton and also please refer to the chart for more information. The patient is seen and evaluated with the nurse in a room, abdominal pain has improved, no nausea, no vomiting, no fever, no chills, no chest pain, no shortness of breath, the patient is flatulent, however, has no bowel movement yet. The patient refuses to get out of the bed and ambulate per my discussion with the nurse and not eating much. The patient is currently on liquid diet. OBJECTIVE: VITAL SIGNS: Temperature is 98.9 with a T-max over 99.8 this morning about four o'clock, pulse is 84, respirations 16, and blood pressure is 146/76. GENERAL: Alert and oriented, comfortable in bed, in no acute distress. CV: S1, S2. CHEST: Equal expansion, clear to auscultation, no acute distress. ABDOMEN: Soft, not as tender as it was yesterday with positive bowel sounds very hypoactive. The patient is morbidly obese. HEENT: Moist. No pallor. No JVD. EXTREMITIES: Moves all, no acute finding. MEDICATIONS: Medication list reviewed. As far as Infectious Disease point of view, patient is on Zosyn. ALLERGIES: NO KNOWN ALLERGIES. LABORATORY STUDIES: White blood cell 6.62, improved from 13.04 originally. When the patient came in, platelet is 157, improved from 133, hemoglobin is 11.4. Sodium 140, potassium 3.6, creatinine 0.77. Serology, COVID-19 pending. Influenza A and B antigen negative. Microbiology; blood culture negative 24 hours. RADIOLOGY STUDIES: There is no new radiology studies available. ASSESSMENT AND PLAN: 1. Acute appendicitis. 2. Nausea, vomiting, resolved. 3. Abdominal pain secondary to #1. 4. The patient is status post laparoscopic appendectomy. Continue with Zosyn at this point. In course, patient to get out of bed and ambulate and gradually increased oral intake. This was discussed with Dr. Bolton in details. Please refer to the chart for further information. Currently comfortable in bed in no acute distress. Dictated by Dilip Briseno PA-C (Al) Dina Bolton MD /[facility] /[id number]
[2020-01-09] MEDS: LOSARTAN POTASSIUM 25 MG TAB PO SCH (13:57)
[2020-01-10 04:00] VITALS: BP 142/78
[2020-01-10] MEDS: PIPER-TAZ 3.375 GM 50 ML IV SCH (06:28)
[2020-01-10] MEDS: LACTATED RINGER'S 1,000 ML IV SCH ×2 (06:28→09:31)
[2020-01-10] MEDS: INSULIN LISPRO 100 UNIT/1 ML 3ML VIAL SQ SCH ×2 (07:30→12:17)
[2020-01-10 07:36] VITALS: BP 146/69
[2020-01-10 08:42] VITALS: BP 146/69
[2020-01-10] MEDS: HYDROCODONE/APAP 7.5MG-325MG 1 EA TAB PO PRN (09:31)
[2020-01-10] MEDS: HYDROCHLOROTHIAZIDE 25 MG TAB PO SCH (09:32)
[2020-01-10] MEDS: LOSARTAN POTASSIUM 25 MG TAB PO SCH (09:32)
--- NOTE | 2020-01-10 09:43 | Progress Note ---
DATE: Infectious Disease SUBJECTIVE: Mr. Saeed is a pleasant 59-year-old gentleman, who was admitted to the hospital complaining of abdominal pain mostly right lower quadrant, very tender to touch, found to have acute appendicitis and now the patient is status post laparoscopic appendectomy. REVIEW OF SYSTEMS: No nausea, vomiting, fever, chills, chest pain, shortness of breath, headache, dysuria. ALLERGIES: NO KNOWN ALLERGIES. OBJECTIVE: VITAL SIGNS: Temperature is 99.0, pulse is 87, respiration 20, blood pressure 146/69. GENERAL: Alert and pleasant, in no acute distress. CV: S1, S2. CHEST: Equal expansion, clear to auscultation. No acute distress. ABDOMEN: Soft and nontender. No distention. HEENT: Moist. No pallor. No JVD. EXTREMITIES: Moves all. No significant edema. MEDICATIONS: Medication list reviewed. As far as Infectious Disease point of view, the patient is on Zosyn. LABORATORY STUDIES: White blood cells 6.62, improved from 13.04 on admission, hemoglobin is 11.4, platelet is 157, improved from 133. No new BMP available. Serology: COVID-19 and influenza A and B antigen negative. MICROBIOLOGY: Blood cultures negative x4. No other microbiology studies available. There is no wound culture in the computer available. IMAGING: No new imaging available. ASSESSMENT AND PLAN: A 59-year-old gentleman with acute appendicitis, status post laparoscopic appendectomy. Abdomen is not as tender at all. Has bowel sounds in comfortable. Nausea, vomiting, resolved. Abdominal pain, significant improvement. Obesity/debility-continue PT/OT. Pain control with [place]. Further management of this patient is based on daily findings on laboratory and physical examination, please refer to the chart for more information. There is a postop day #2 on appendectomy. Discharge planning noted. Discussed with Dr. Bolton. Please refer to the chart. Dictated by Dilip Briseno PA-C (Al) Dina Bolton MD /[facility] /[id number]
--- NOTE | 2020-01-10 11:44 | Discharge Summary ---
FINAL DIAGNOSIS: Acute appendicitis, status post laparoscopic appendectomy. SECONDARY DIAGNOSES: 1. Coronavirus disease 2019 negative. 2. Diabetes. 3. Morbid obesity. 4. Hypertension. CONSULTANTS: 1. Dr. Zackery Fitch, Surgery. 2. Dr. Bolton, Infectious Disease. 3. Dr. Blayne Osorio, Pulmonary. PROCEDURES/STUDIES PERFORMED: 1. Laparoscopic appendectomy. 2. CT of the abdomen and pelvis. HISTORY: Per [facility] HOSPITAL COURSE: The patient initially was admitted as a rule out COVID, this turned out to be negative. Subsequently, CT was done, which revealed acute appendicitis. Today is postop day #2 for laparoscopic appendectomy. The patient did well. He received Zosyn while here. The patient's diet has been advanced and tolerated without any problem. The patient will go home on Levaquin and Flagyl and will follow up with the surgeon in 2 weeks. The patient will also be given Tylenol No.3 as needed for pain control. CONDITION ON DISCHARGE: Improved. DISCHARGE MEDICATIONS: Please see medication reconciliation form. MD LUCILLE Yadav/[facility] /[id number]
[2020-01-10] MEDS ORDERED: LEVAQUIN500 MG PO (14:14)
[2020-01-10] MEDS ORDERED: FLAGYL250 MG PO (14:15)
[2020-01-10] MEDS ORDERED: TYLENOL WITH C1 EACH PO (14:15)
[2020-01-10] MEDS ORDERED: LOSARTAN POTASS25 MG PO (14:15)
== END 2020-01-10 14:51 | disposition home or self-care (01) | DRG 854 ==
LOC: ER 08:01 → ERHOLD 11:20 → MED/SURG3 15:28 → MED/SURG 01-08 16:16
PROVIDERS: ADMIT Internal Medicine; ATTEND Internal Medicine
PROC: 0DTJ4ZZ Resection of Appendix, Percutaneous Endoscopic Approach (ICD-10-PCS; principal; 2020-01-08 13:30)
DX: A41.9 Sepsis, unspecified organism (principal); K35.80 Unspecified acute appendicitis; Z68.41 Body mass index [BMI] 40.0-44.9, adult; E11.9 Type 2 diabetes mellitus without complications; I10 Essential (primary) hypertension; E66.01 Morbid (severe) obesity due to excess calories; K44.9 Diaphragmatic hernia without obstruction or gangrene; E87.6 Hypokalemia
CPT/HCPCS: 36415; 71045; 74018; 74177; 80048; 80053; 81001; 82948; 83605; 83690; 83735; 85025; 85610; 85730; 87040; 87400; 87635; 88304; 93005; 96360; 99284; C1766; J0456; J0696; J1170; J1650; J2001; J2250; J2270; J2405; J2543; J2710; J3010; J3480; J7030; J7121; Q9967

== ENCOUNTER 2021-03-02 12:18 | Inpatient (IN) | payer SELFPAY ==
[~2021-03-02] VITALS: Ht 175.3 cm; Wt 135.6 kg
[~2021-03-02 12:18] MED LIST: FLAGYL250 MG PO; HYDROCHLOROTHIA25 MG; LEVAQUIN500 MG PO; LOSARTAN POTASS25 MG PO; METFORMIN HCL500 MG PO; TYLENOL WITH C1 EACH PO
[2021-03-02 13:38] LABS: BASOPHILS % 0.3 % (0.0-1.0); EOSINOPHILS # (AUTO) 0.1 (0.0-0.4); EOSINOPHILS % 1.8 % (0.0-6.0); HEMATOCRIT 34.6 % (38.2-49.6); LYMPHOCYTES # (AUTO) 1.4 (1.0-3.2); LYMPHOCYTES % 23.7 % (18.0-39.1); MEAN CORPUSCULAR HGB CONC 34.7 g/dL (31-35); MEAN CORPUSCULAR VOLUME 89.4 fL (81-99); MONOCYTES # (AUTO) 0.6 (0.2-0.8); MONOCYTES % 9.2 % (4.4-11.3); NEUTROPHILS # (AUTO) 3.9 (2.1-6.9); NEUTROPHILS % 64.8 % (38.7-80.0); PLATELET COUNT 173 x10e3/uL (140-360); RED BLOOD COUNT 3.87 x10e6/uL (4.3-5.7)
[2021-03-02 13:53] LABS: ALANINE AMINOTRANSFERASE 15 IU/L (0-55); ALBUMIN 4.2 g/dL (3.5-5.0); ALBUMIN/GLOBULIN RATIO 1.4 (0.8-2.0); ALKALINE PHOSPHATASE 77 IU/L (40-150); ANION GAP 17.9 mmol/L (8-16); BLOOD UREA NITROGEN 10 mg/dL (7-26); BUN/CREATININE RATIO 12 (6-25); CARBON DIOXIDE 23 mmol/L (22-29); CHLORIDE 101 mmol/L (98-107); CREATINE KINASE 120 IU/L (30-200); CREATININE, SERUM 0.83 mg/dL (0.72-1.25); EST GLOMERULAR FILTRATION RATE > 60 ML/MIN (60-); GLUCOSE 207 mg/dL (74-118); POTASSIUM 3.9 mmol/L (3.5-5.1); SODIUM 138 mmol/L (136-145)
[2021-03-02] MEDS ORDERED: KETOROLAC TROMETHAMINE 30 MG/ML VIAL IV STA (15:05)
[2021-03-02] MEDS ORDERED: ASPIRIN 81 MG CHEW TAB PO ONE (15:30)
[2021-03-02] MEDS ORDERED: ONDANSETRON HCL INJ 2MG/ML 2ML 2 MG/ML VIAL IV PRN (16:15)
[2021-03-02 17:37] VITALS: BP 144/70
[2021-03-02 18:03] VITALS: BP 144/70
[2021-03-02 18:09] VITALS: BP 144/70
[2021-03-02 19:40] VITALS: BP 127/62
[2021-03-02 20:00] VITALS: BP 127/62
[2021-03-02 22:35] LABS: CREATINE KINASE 101 IU/L (30-200)
[2021-03-03] VITALS (7 sets, daily range): BP systolic 119–146; BP diastolic 56–74
[2021-03-03 05:51] LABS: BASOPHILS % 0.3 % (0.0-1.0); EOSINOPHILS # (AUTO) 0.2 (0.0-0.4); EOSINOPHILS % 2.3 % (0.0-6.0); HEMATOCRIT 34.7 % (38.2-49.6); HEMOGLOBIN 12.1 g/dL (14.0-18.0); LYMPHOCYTES # (AUTO) 1.8 (1.0-3.2); LYMPHOCYTES % 25.7 % (18.0-39.1); MEAN CORPUSCULAR HEMOGLOBIN 31.2 pg (28-32); MEAN CORPUSCULAR HGB CONC 34.9 g/dL (31-35); MEAN CORPUSCULAR VOLUME 89.4 fL (81-99); MONOCYTES # (AUTO) 0.6 (0.2-0.8); MONOCYTES % 9.1 % (4.4-11.3); NEUTROPHILS # (AUTO) 4.3 (2.1-6.9); NEUTROPHILS % 62.3 % (38.7-80.0); PLATELET COUNT 177 x10e3/uL (140-360); RED BLOOD COUNT 3.88 x10e6/uL (4.3-5.7); RED CELL DISTRIBUTION WIDTH 12.9 % (11.7-14.4)
[2021-03-03 06:13] LABS: ALANINE AMINOTRANSFERASE 13 IU/L (0-55); ALBUMIN/GLOBULIN RATIO 1.3 (0.8-2.0); ALKALINE PHOSPHATASE 71 IU/L (40-150); BLOOD UREA NITROGEN 10 mg/dL (7-26); BUN/CREATININE RATIO 13 (6-25); CARBON DIOXIDE 27 mmol/L (22-29); CHLORIDE 104 mmol/L (98-107); CREATININE, SERUM 0.75 mg/dL (0.72-1.25); EST GLOMERULAR FILTRATION RATE > 60 ML/MIN (60-); GLUCOSE 153 mg/dL (74-118); SODIUM 141 mmol/L (136-145)
[2021-03-03 06:40] LABS: CREATINE KINASE 84 IU/L (30-200)
[2021-03-03] MEDS ORDERED: ASPIRIN 81 MG ENTERIC COATED PO SCH (09:00)
[2021-03-03] MEDS ORDERED: ALPRAZOLAM 1 MG TAB PO ONE (10:30)
[2021-03-03] MEDS ORDERED: DOCUSATE SODIUM 100 MG CAP PO PRN (11:45)
[2021-03-03] MEDS ORDERED: FAMOTIDINE 20 MG TAB PO SCH (16:30)
[2021-03-03] MEDS ORDERED: AMLODIPINE BESYLATE 5 MG TAB PO ONE (16:30)
[2021-03-03] MEDS ORDERED: ENOXAPARIN SOD INJ 40 MG/0.4 ML SYR SC SCH (17:00)
[2021-03-03] MEDS ORDERED: LISINOPRIL10 MG PO (18:58)
[2021-03-03] MEDS ORDERED: LEXAPRO20 MG PO (18:58)
[2021-03-03] MEDS ORDERED: HUMULIN N100 UNITS/ SC ×2 (18:58)
[2021-03-03] MEDS ORDERED: ASPIRIN81 MG PO (18:58)
[2021-03-03] MEDS ORDERED: HUMULIN R100 UNIT/2 INJ ×2 (18:58)
[2021-03-03] MEDS ORDERED: METOPROLOL TART50 MG PO (18:58)
[2021-03-03] MEDS ORDERED: ATORVASTATIN CA20 MG PO (18:58)
[2021-03-03] MEDS ORDERED: CLOPIDOGREL75 MG PO (18:58)
[2021-03-03] MEDS ORDERED: ATORVASTATIN 20 MG TAB PO SCH ×2 (21:00)
[2021-03-03] MEDS ORDERED: ZOLPIDEM TARTRATE 5 MG TAB PO PRN (21:00)
[2021-03-04] MEDS ORDERED: LOSARTAN POTASSIUM 25 MG TAB PO SCH (09:00)
[2021-03-04] MEDS ORDERED: AMLODIPINE BESYLATE 5 MG TAB PO SCH (09:00)
[2021-03-04] MEDS ORDERED: ASPIRIN 325 MG TAB PO SCH (09:00)
== END 2021-03-03 22:03 | disposition home or self-care (01) | DRG 65 ==
LOC: ER 12:52 → ERHOLD 16:12 → MED/SURG3 17:28
PROVIDERS: ADMIT Internal Medicine; ATTEND Internal Medicine
DX: I63.432 Cerebral infarction due to embolism of left posterior cerebral artery (principal); Z68.41 Body mass index [BMI] 40.0-44.9, adult; I50.30 Unspecified diastolic (congestive) heart failure; H53.461 Homonymous bilateral field defects, right side; E11.9 Type 2 diabetes mellitus without complications; E66.01 Morbid (severe) obesity due to excess calories; Z20.822 Contact with and (suspected) exposure to COVID-19
CPT/HCPCS: 36415; 70450; 71045; 80053; 82550; 82553; 82948; 84484; 85025; 93005; 93306; 99284; J1650; J1885; U0002